=== PATIENT | male | born 1975 | race Caucasian/White ===

== ENCOUNTER 2022-02-13 17:07 | Emergency (ER) | payer MEDICAID ==
[~2022-02-13] VITALS: Ht 170.2 cm; Wt 100.0 kg
[2022-02-14 00:40] LABS: BASOPHILS % 1.5 % (0.0-2.0); EOSINOPHILS % 5.6 % (0.0-5.0); HEMATOCRIT. 43.8 % (42.0-52.0); HEMOGLOBIN. 14.9 g/dL (14.0-18.0); LYMPHOCYTES % 38.5 % (20.0-50.0); MEAN CORPUSCULAR VOLUME 84.9 fL (80.0-94.0); MEAN PLATELET VOLUME 9.1 fl (7.4-10.4); MONOCYTES % 7.8 % (2.0-8.0); NEUTROPHILS % 46.6 % (40.0-76.0); PLATELET 211 x1000/uL (130-400); RED BLOOD CELL COUNT 5.15 mill/uL (4.7-6.1)
[2022-02-14 00:48] LABS: CHLORIDE 105 mEq/L (98-107)
[2022-02-14 01:12] LABS: CLARITY URINE CLEAR (CLEAR); COLOR URINE YELLOW (YELLOW); KETONES URINE NEGATIVE (NEGATIVE); LEUKOCYTE ESTERASE URINE NEGATIVE (NEGATIVE); NITRITE URINE NEGATIVE (NEGATIVE); OCCULT BLOOD URINE TRACE (NEGATIVE); PROTEIN URINE NEGATIVE (NEGATIVE); SPECIFIC GRAVITY URINE 1.007 (1.005-1.030); UROBILINOGEN URINE 0.2 E.U./dL (0.2-1.0)
[2022-02-14] MEDS ORDERED: MORPHINE SULFATE 4 MG/ML CPJ (NOT FOR IM USE) IV ONE (01:45)
[2022-02-14] MEDS ORDERED: MAGNESIUM/ALUMINUM HYDROXIDE/SIMETHICONE 30ML UDC PO ONE (06:15)
[2022-02-14] MEDS ORDERED: HYDROCODONE/ACETAMINOPHEN 5/325MG TABLET PO ONE (06:15)
[2022-02-14 08:05] VITALS: BP 111/86
[2022-02-14] MEDS ORDERED: IBUP-2029 MT (08:19)
== END 2022-02-14 08:24 | disposition home or self-care (01) ==
LOC: ER 17:07
DX: R10.11 Right upper quadrant pain (principal); K82.8 Other specified diseases of gallbladder; K76.0 Fatty (change of) liver, not elsewhere classified
CPT/HCPCS: 36415; 76705; 80053; 81003; 83690; 85025; 96374; 99285; J2270

== ENCOUNTER 2022-09-26 23:43 | Emergency (ER) | payer MEDICAID ==
[~2022-09-26] VITALS: Ht 170.2 cm; Wt 94.5 kg
[~2022-09-26 23:43] MED LIST: IBUP-2029 MT
[2022-09-27 00:09] VITALS: BP 128/85
== END 2022-09-27 03:00 | disposition left against medical advice (07) ==
LOC: ER 23:43
DX: Z53.21 Procedure and treatment not carried out due to patient leaving prior to being seen by health care provider (principal)